=== PATIENT | male | born 1970 | race Caucasian/White ===

== ENCOUNTER → 2023-01-11 | Outpatient (CLI) | payer OTHER ==
--- NOTE | 2023-01-11 15:25 | P.SLEEP ---
History of Present Illness H&P Date: 01/11/23 This is a 52-year-old male patient who used to live in [place] and currently is living in [facility]. The patient was in the in [place]. The patient during his stay in [place], underwent a sleep study, a home sleep study and the patient was given a CPAP unit and currently is coming in to establish himself for treatment of obstructive sleep apnea in my office. I noted that the patient has a ResMed 10 CPAP unit and he has not used the machine for more than a year. He does not have any supplies. Local [employer] companies have refused giving him any supplies. At the same time, the patient is active symptoms of sleep apnea for now as the patient is off treatment. He is snoring and he has witnessed apneas and excessive fatigue and tiredness and sleepiness during the day. He is going to bed at around 10 PM and awaken of 6:30 AM in the morning. He had difficulties with fatigue, attention spine, and memory and concentration. He is falling sleep all the time. As such, the patient is a need for therapy. He has a functioning machine which is set at a pressure of 11 cm of water. His current Salem score is 16. He is able to drive without having to fall asleep. Denies having any motor vehicle accident because of falling sleep. His current Salem score is at 16. No sleep at all assist. No hallucinations. No cataplexy. No substance abuse. No other cardiac vascular complications. He does have occasional heartburn for which she takes omeprazole. No other complaints otherwise for now. His body weight is up probably by around 20 pounds over the past few years. No nightmares. Anxiety. No panic attacks. He is having symptoms of nocturia. Review of Systems Constitutional: Reports daytime sleepiness, Reports fatigue, Reports weight gain Eyes: denies as per HPI, denies blurred vision, denies bulging eye, denies decreased vision, denies diplopia, denies discharge, denies dry eye, denies irritation, denies itching, denies pain, denies photophobia, denies loss of peripheral vision, denies loss of vision, denies tunnel vision/blind spots Ears: deny: decreased hearing, ear discharge, earache, tinnitus Ears, nose, mouth and throat: Reports as per HPI Breasts: absent: as per HPI, gynecomastia Cardiovascular: Reports as per HPI Respiratory: Reports sleep apnea Gastrointestinal: Reports as per HPI Genitourinary: Reports as per HPI, Reports urinary frequency Musculoskeletal: Reports as per HPI Musculoskeletal: absent: ankle pain, ankle stiffness, ankle swelling Integumentary: Reports as per HPI Neurological: Reports as per HPI Psychiatric: Reports difficulty concentrating, Reports hypersomnia Endocrine: Reports as per HPI, Reports fatigue Hematologic/Lymphatic: Reports as per HPI Allergic/Immunologic: Reports as per HPI Past Medical History Past Medical History: GERD/Reflux, Sleep Apnea/CPAP/BIPAP Past Surgical History: Appendectomy Smoking Status: Former smoker Past Alcohol Use History: None Reported Past Drug Use History: None Reported Medications and Allergies Home Medications and Allergies Comment(s): Omeprazole 20 mg 2 tablets a day Physical Exam BP is 131/85, pulse is 91, respirations 16, temperature is 97.5, weight is 280 pounds, BMI is 40.3, Salem score is at 16, the size of the neck is 19.5 inches. Gen. appearance, the patient is calm and comfortable, not in acute distress. Head exam was generally normal. There was no scleral icterus or corneal arcus. Mucous membranes were moist. Head exam was generally normal. There was no scleral icterus or corneal arcus. Mucous membranes were moist. Neck was supple and without jugular venous distension, thyromegaly, or carotid bruits. Carotids were easily palpable bilaterally. There was no adenopathy. The patient has significant crowding of the posterior oropharynx with a Mallampati class IV Lungs were clear to auscultation and percussion, and with normal diaphragmatic excursion. No wheezes or rales were noted. Cardiac exam revealed the PMI to be normally situated and sized. The rhythm was regular and no extrasystoles were noted during several minutes of auscultation. The first and second heart sounds were normal and physiologic splitting of the second heart sound was noted. There were no murmurs, rubs, clicks, or gallops. Abdominal exam revealed normal bowel sounds. The abdomen was soft, non-tender, and without masses, organomegaly, or appreciable enlargement of the abdominal aorta. Examination of the extremities revealed easily palpable radial, femoral and pedal pulses. There was no cyanosis, clubbing or edema. Examination of the skin revealed no evidence of significant rashes, suspicious appearing nevi or other concerning lesions. Neurologically, the patient is awake and alert and the patient does not have any focal neurological deficit. Cranial nerves are essentially intact. Assessment and Plan Plan: Obstructive sleep apnea, symptomatic with symptoms of chronic fatigue and sleepiness and an Salem score of 16. Original evaluation testing was done in [place] and the patient has a CPAP unit which is functional. She hasn't been using the treatment due to lack of any supplies including tubing and masks. Chronic hypersomnia, Salem score of 16 Loud snoring and witnessed apneas Obesity with a BMI of 40.3 Acid reflux Plan I offer this patient airfit F 20 medium-size fullface mask I offer this patient a climate line His machine is functional and he is going to restart using his CPAP unit at the same pressure of 11 cm of water The patient will see him back for a short-term follow-up for a compliancy check or make further adjustments if needed The patient will receive his original home sleep study from his sleep Center in [place]. If unable to do so, the patient will need a home sleep study 2-D established diagnosis. Encourage weight loss Maintain good sleep hygiene measures We'll continue to follow Sleep Note - Sleep Note Sleep Note: Temperature: Pulse Rate: Respiratory Rate: Blood Pressure: SpO2: Height: Weight: BMI: Neck Circumference:
== END ==
LOC: 3 N SLEEP 13:58
PROVIDERS: ATTEND Internal Medicine Critical Care Medicine
DX: G47.33 Obstructive sleep apnea (adult) (pediatric) (principal); K21.9 Gastro-esophageal reflux disease without esophagitis; E66.9 Obesity, unspecified; Z68.41 Body mass index [BMI] 40.0-44.9, adult; Z99.89 Dependence on other enabling machines and devices; Z87.891 Personal history of nicotine dependence
CPT/HCPCS: 99202